=== PATIENT | male | born 1935 | race Caucasian/White ===

== ENCOUNTER 2018-02-25 06:32 | Day surgery (SDC) | payer MEDICARE, BC ==
[2018-02-25] MEDS ORDERED: Lactated Ringers 1,000 ML IV SCH (07:00)
[2018-02-25] MEDS ORDERED: Propofol 200 MG/20 ML SDV ONE (07:42)
[2018-02-25] MEDS ORDERED: fentaNYL 100 MCG/2 ML SDV ONE (07:42)
--- NOTE | 2018-02-25 14:42 | OR ---
PREOPERATIVE DIAGNOSIS: Positive FIT test. POSTOPERATIVE DIAGNOSIS: Normal colonoscopic exam. PROCEDURE PROPOSED: Total flexible colonoscopy. PROCEDURE DONE: Total flexible colonoscopy. INDICATION: This is an 82-year-old gentleman who has never had a full colonoscopy, who was found on recent annual physical to have guaiac-positive stool and was referred for colonoscopy. TECHNIQUE: The patient brought to the endoscopy suite, placed in left lateral decubitus position. 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 The flexible video colonoscope was then passed transanally and under visualization advanced to the cecum. Examination revealed normal ascending, transverse, descending, sigmoid, and rectal colon. There were no evidence of any polyps, colitis, diverticulosis, or any other abnormalities. He was noted to have possibly some mild friability in the anal area, which possibly made his test positive. There were certainly nothing of concern in his colon and he tolerated the procedure well as the scope was then withdrawn. IMPRESSION: Essentially normal colonoscopic exam. PLAN: The patient is reassured. I felt at his age does not need any future colonoscopies. SCM: 02/25/2018 08:05:35 MODL: 02/25/2018 12:08:27 /[id number]
== END 2018-02-25 09:47 | disposition home or self-care (01) ==
LOC: VM.SDS 06:32
PROVIDERS: ATTEND Surgery
DX: R19.5 Other fecal abnormalities (principal); I10 Essential (primary) hypertension; J30.9 Allergic rhinitis, unspecified; Z79.899 Other long term (current) drug therapy; Z88.0 Allergy status to penicillin; Z88.2 Allergy status to sulfonamides; Z90.49 Acquired absence of other specified parts of digestive tract; Z90.89 Acquired absence of other organs; Z98.890 Other specified postprocedural states
CPT/HCPCS: 00811; J2704; J3010; J7120

== ENCOUNTER 2018-03-27 17:34 | Inpatient (IN) | payer MEDICARE, BC ==
[2018-03-27 18:39] LABS: CHLORIDE,CL 102 mmol/L (98-107); SODIUM,NA 138 mmol/L (136-145)
[2018-03-27] MEDS ORDERED: Sodium Chloride 0.9% 500 ML IV ONE (19:14)
[2018-03-27] MEDS ORDERED: oxyCODONE 5 MG Tab PO ONE (20:24)
[2018-03-27] MEDS ORDERED: Albuterol/Ipratropium 3.0-0.5 MG/3 ML Neb Soln NEB ONE (20:25)
[2018-03-27] MEDS ORDERED: Sodium Chloride 0.9% 1,000 ML IV ONE (21:42)
[2018-03-27] MEDS: methylPREDNISolone Sodium Succinate 125 MG/2 ML SDV IV SCH (21:59)
[2018-03-27] MEDS: cefTRIAXone 2 GM Vial IVPUSH SCH (22:00)
[2018-03-27] MEDS: Albuterol 0.083% 2.5 MG/3 ML Neb Soln NEB PRN (22:03)
[2018-03-28] MEDS: oxyCODONE 5 MG Tab PO SCH ×2 (01:23→04:50)
[2018-03-28] MEDS: Albuterol 0.083% 2.5 MG/3 ML Neb Soln NEB PRN (03:10)
[2018-03-28] MEDS: methylPREDNISolone Sodium Succinate 125 MG/2 ML SDV IV SCH ×2 (04:51→15:20)
[2018-03-28] MEDS: Sodium Chloride 0.9% 10 ML Syringe FLUSH PRN ×2 (04:51→15:34)
[2018-03-28] MEDS ORDERED: oxyCODONE 5 MG Tab PO PRN (06:30)
[2018-03-28] MEDS: Gabapentin 300 MG Cap PO SCH (08:15)
[2018-03-28] MEDS: Multivitamins with Iron/Calcium/Folic Acid/Minerals Tab PO SCH (08:16)
[2018-03-28] MEDS: Calcium Carbonate/Vitamin D3 1250 MG-200 Unit Tab PO SCH (08:16)
[2018-03-28] MEDS: Aspirin 81 MG Tab.Chew PO SCH (08:17)
[2018-03-28] MEDS: Lisinopril 20 MG Tab PO SCH (08:17)
[2018-03-28] MEDS: Cyanocobalamin (Vitamin B12) 1,000 MCG Tab PO SCH (08:17)
[2018-03-28] MEDS: cefTRIAXone 2 GM Vial IVPUSH SCH (08:23)
[2018-03-28] MEDS: Gabapentin 400 MG Cap PO SCH ×2 (12:08→20:15)
--- NOTE | 2018-03-28 14:15 | PCM.HP ---
H&P History of Present Illness - General Date of Service: 03/28/18 Admit Problem/Dx: Admission Diagnosis/Problem Admission Diagnosis/Problem Weakness - History of Present Illness Initial Comments - Free Text/Narative: Chief complaint: Confusion and fever History present illness: Three days ago patient underwent total hip revision without complication. Two days ago he went home as he was doing pretty well. Yesterday he began seeming more confused and agitated. Was having a harder time getting around did not have any focal symptoms. They measured a temperature 102. Maybe slight cough no dysuria no diarrhea no vomiting no abdominal pain no chest pain. 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 They did a workup for any sources of postop infection his UA was normal chest x-ray was normal and CT had this morning was normal. His white count was just a touch elevated. They started him on empiric steroid plus Rocephin for possible bronchitis with some wheezing versus rule out PNA. He has improved overnight. His thinking seems back to normal he still can't remember much of all from yesterday. Chest x-rays again normal. White count is come down some. He remains afebrile. Past medical history: Multiple hip surgeries including for arthroplasties to the right side. Recent normal cultures from this last surgery. Hypertension. Foot drop. Nephritis. Medications: Aspirin, Senokot, oxycodone when necessary, lisinopril, pravastatin , gabapentin, calcium with vitamin D, B-12, multivitamin. Allergies: Penicillin, sulfa, question Zosyn. Social history: lives with , nonsmoker. Family history: Noncontributory. Review of systems: Negative. Denies any complaints currently. No speech difficulty no facial droop no headache no neck pain no chest pain no abdominal pain no vomiting no diarrhea and no dysuria no cough denies any pain in his recent hip. Physical exam oxygen saturations 93% room air temperature 36.8 Celsius pulse 72 blood pressure 120/60. Alert oriented male sitting on edge of bed pleasant cooperative smiling, head is atraumatic. Pupils equal round reactive, cranial nerves intact. Neck supple full range of motion. Heart and lungs clear to auscultation. Abdomen soft nontender. Normal postoperative range of motion right hip. He has a clean dry lateral surgical wound. No calf pain or swelling. Assessment and plan: #1. Confusion, resolved. Would seem most consistent with a delirium from commendation of recent surgery and hospitalization, recent pain medicine use, recent fever. #2. Fever, resolved, white count trending down. Afebrile close to 24 hours currently. Continue Rocephin for now. We can DC his steroid. Would suspect usual nonspecific postoperative fever with no focal signs of infection seen. #3. I recommend Lovenox DVT prophylaxis while in the hospital. #4. Has mild TRINI, continue gentle rehydration. #5. Slight ambulate issues after recent RUIZ. This is his fourth revision. He is 82 years old. He was sent home after one night in the hospital. Family does have some concerns about his ability to return home and be able to do ADLs. We'll have PT consult today and see whether not he needs swing bed for some additional rehab. - Related Data Allergies/Adverse Reactions: Allergies Allergy/AdvReac Type Severity Reaction Status Date / Time Penicillins Allergy Hives Verified 02/25/18 06:46 Sulfa (Sulfonamide Allergy Hives Verified 02/25/18 06:46 Antibiotics) Home Medications: Home Meds Cyanocobalamin (Vitamin B-12) [Vitamin B-12] 1,000 mcg PO DAILY 05/06/14 [ History] Gabapentin [Neurontin] 600 mg PO TID 05/06/14 [History] Lisinopril [Zestril] 20 mg PO DAILY 05/06/14 [History] Multivitamin [Multi Vitamin Daily] 1 each PO DAILY 05/06/14 [History] Pravastatin [Pravachol] 80 mg PO BEDTIME 05/06/14 [History] Calcium Carbonate/Vitamin D3 [Oyster Shell+D 250 mg Tablet] 1 tab PO DAILY 02/25 [History] traMADol [Ultram] 50 mg PO QID PRN 02/25/18 [History] Aspirin 81 mg PO DAILY 03/27/18 [History] Docusate Sodium/Sennosides [Senokot-S] 2 each PO BID 03/27/18 [History] oxyCODONE 5 mg PO Q4H 03/27/18 [History] Past Medical History HEENT History: Reports: Cataract, Other (See Below) Other HEENT History: tonsillectomy Cardiovascular History: Reports: High Cholesterol, Hypertension Respiratory History: Reports: Other (See Below) Other Respiratory History: pneumonia Gastrointestinal History: Reports: None Genitourinary History: Reports: None Musculoskeletal History: Reports: Osteoarthritis, Other (See Below) Other Musculoskeletal History: Bilateral bunion. hammer toe. 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 Right foot drop. Ingrown left big toenail. left foot ulcer. Bicep tendon repair Other Neuro History: Postherpetic neuralgia Psychiatric History: Reports: None Endocrine/Metabolic History: Reports: None Hematologic History: Reports: None Immunologic History: Reports: None Oncologic (Cancer) History: Reports: None Dermatologic History: Reports: None - Past Surgical History Head Surgeries/Procedures: Reports: None HEENT Surgical History: Reports: Cataract Surgery, Tonsillectomy Cardiovascular Surgical History: Reports: None GI Surgical History: Reports: Cholecystectomy Endocrine Surgical History: Reports: None Musculoskeletal Surgical History: Reports: Hip Replacement Social & Family History - Family History Family Medical History: Unobtainable - Tobacco Use Smoking Status *Q: Never Smoker Second Hand Smoke Exposure: No - Caffeine Use Caffeine Use: Reports: None - Recreational Drug Use Recreational Drug Use: No H&P Review of Systems - Review of Systems: Review Of Systems: See Below Exam - Exam Exam: See Below - Vital Signs Vital Signs: Last Vital Signs Temp 36.8 C 03/28/18 06:00 Pulse 75 03/28/18 06:00 Resp 20 03/28/18 06:00 BP 128/64 03/28/18 08:17 Pulse Ox 93 L 03/28/18 06:00 Weight: 111.584 kg - Patient Data Lab Results Last 24 hrs: Laboratory Results - last 24 hr 03/27/18 03/27/18 03/27/18 Range/Units 18:05 18:05 18:05 WBC 10.4 H (4.0-10.0) x10^3/uL RBC 4.05 L (4.5-6.0) x10^6/uL Hgb 12.6 L (14.0-18.0) g/dL Hct 38.1 L (40.0-52.0) % MCV 94.1 H (78.0-93.0) fL MCH 31.1 (26.0-32.0) pg MCHC 33.1 (32.0-36.0) g/dL RDW Coeff of [place] 13.8 (10.0-15.0) % Plt Count 136 (130-400) x10^3/uL Neut % (Auto) 56.9 (50.0-80.0) % Lymph % (Auto) 28.1 (25.0-50.0) % [place] % (Auto) 14.7 H (2.0-11.0) % Eos % (Auto) 0.2 (0.0-4.0) % Baso % (Auto) 0.1 L (0.2-1.2) % PT 10.4 (9.6-11.4) SEC INR 1.0 L (2.0-3.5) Sodium 138 (136-145) mmol/L Potassium 4.0 (3.5-5.1) mmol/L Chloride 102 (98-107) mmol/L Carbon Dioxide 24 (21-32) mmol/L Anion Gap 16.0 (10-20) mmol/L BUN 18 (7-18) mg/dL Creatinine 1.5 H (0.70-1.30) mg/dL Est Cr Clr Drug Dosing TNP Estimated GFR (MDRD) 45 Glucose 115 H (74-106) mg/dL Lactic Acid (0.4-2.0) mmol/L Calcium 8.5 (8.5-10.1) mg/dL Corrected Calcium 9.14 (8.5-10.1) mg/dL Magnesium 1.7 L (1.8-2.4) mg/dL Total Bilirubin 0.9 (0.2-1.0) mg/dL AST 47 H (15-37) U/L ALT 29 (16-63) U/L Alkaline Phosphatase 78 (46-116) U/L Troponin I < 0.017 (<=0.056) ng/mL C-Reactive Protein 16.0 H (<=0.9) mg/dL NT-Pro-B Natriuret Pep 232 (<=450) pg/mL Total Protein 6.2 L (6.4-8.2) g/dL Albumin 3.2 L (3.4-5.0) g/dL Globulin 3.0 Albumin/Globulin Ratio 1.07 Urine Color (YELLOW) Urine Appearance (CLEAR) Urine pH (5.0-8.0) Ur Specific [place] Urine Protein (NEGATIVE) mg/dL Urine Glucose (UA) (NEGATIVE) mg/dL Urine Ketones (NEGATIVE) mg/dL Urine Occult Blood (NEGATIVE) Urine Nitrite (NEGATIVE) Urine Bilirubin (NEGATIVE) Urine Urobilinogen (0.2) EU/dL Ur Leukocyte Esterase (NEGATIVE) Urine RBC (NOT SEEN) /HPF Urine WBC (NOT SEEN) /HPF Ur Transition Epith Cell (NEGATIVE) /HPF Amorphous Sediment Urine Bacteria (NEGATIVE) /HPF Urine Mucus (NEGATIVE) /LPF 03/27/18 03/27/18 03/28/18 Range/Units 18:05 20:25 08:35 WBC 8.6 (4.0-10.0) x10^3/uL RBC 4.22 L (4.5-6.0) x10^6/uL Hgb 13.2 L (14.0-18.0) g/dL Hct 39.6 L (40.0-52.0) % MCV 93.8 H (78.0-93.0) fL MCH 31.3 (26.0-32.0) pg MCHC 33.3 (32.0-36.0) g/dL RDW Coeff of [place] 13.6 (10.0-15.0) % Plt Count 137 (130-400) x10^3/uL Neut % (Auto) 83.1 H (50.0-80.0) % Lymph % (Auto) 13.5 L (25.0-50.0) % [place] % (Auto) 3.2 (2.0-11.0) % Eos % (Auto) 0.0 (0.0-4.0) % Baso % (Auto) 0.2 (0.2-1.2) % PT (9.6-11.4) SEC INR (2.0-3.5) Sodium (136-145) mmol/L Potassium (3.5-5.1) mmol/L Chloride (98-107) mmol/L Carbon Dioxide (21-32) mmol/L Anion Gap (10-20) mmol/L BUN (7-18) mg/dL Creatinine (0.70-1.30) mg/dL Est Cr Clr Drug Dosing Estimated GFR (MDRD) Glucose (74-106) mg/dL Lactic Acid 1.2 (0.4-2.0) mmol/L Calcium (8.5-10.1) mg/dL Corrected Calcium (8.5-10.1) mg/dL Magnesium (1.8-2.4) mg/dL Total Bilirubin (0.2-1.0) mg/dL AST (15-37) U/L ALT (16-63) U/L Alkaline Phosphatase (46-116) U/L Troponin I (<=0.056) ng/mL C-Reactive Protein (<=0.9) mg/dL NT-Pro-B Natriuret Pep (<=450) pg/mL Total Protein (6.4-8.2) g/dL Albumin (3.4-5.0) g/dL Globulin Albumin/Globulin Ratio Urine Color Dark yellow H (YELLOW) Urine Appearance Slightly cloudy H (CLEAR) Urine pH 5.0 (5.0-8.0) Ur Specific [place] 1.010 Urine Protein Negative (NEGATIVE) mg/dL Urine Glucose (UA) Negative (NEGATIVE) mg/dL Urine Ketones Negative (NEGATIVE) mg/dL Urine Occult Blood Negative (NEGATIVE) Urine Nitrite Negative (NEGATIVE) Urine Bilirubin Negative (NEGATIVE) Urine Urobilinogen 0.2 (0.2) EU/dL Ur Leukocyte Esterase Negative (NEGATIVE) Urine RBC 0-5 (NOT SEEN) /HPF Urine WBC 0-5 (NOT SEEN) /HPF Ur Transition Epith Cell Rare H (NEGATIVE) /HPF Amorphous Sediment Few Urine Bacteria Few H (NEGATIVE) /HPF Urine Mucus Few H (NEGATIVE) /LPF 03/28/18 Range/Units 08:35 WBC (4.0-10.0) x10^3/uL RBC (4.5-6.0) x10^6/uL Hgb (14.0-18.0) g/dL Hct (40.0-52.0) % MCV (78.0-93.0) fL MCH (26.0-32.0) pg MCHC (32.0-36.0) g/dL RDW Coeff of [place] (10.0-15.0) % Plt Count (130-400) x10^3/uL Neut % (Auto) (50.0-80.0) % Lymph % (Auto) (25.0-50.0) % [place] % (Auto) (2.0-11.0) % Eos % (Auto) (0.0-4.0) % Baso % (Auto) (0.2-1.2) % PT (9.6-11.4) SEC INR (2.0-3.5) Sodium 141 (136-145) mmol/L Potassium 4.6 (3.5-5.1) mmol/L Chloride 105 (98-107) mmol/L Carbon Dioxide 24 (21-32) mmol/L Anion Gap 16.6 (10-20) mmol/L BUN 18 (7-18) mg/dL Creatinine 1.5 H (0.70-1.30) mg/dL Est Cr Clr Drug Dosing 41.14 Estimated GFR (MDRD) 45 Glucose 243 H (74-106) mg/dL Lactic Acid (0.4-2.0) mmol/L Calcium 8.7 (8.5-10.1) mg/dL Corrected Calcium (8.5-10.1) mg/dL Magnesium (1.8-2.4) mg/dL Total Bilirubin (0.2-1.0) mg/dL AST (15-37) U/L ALT (16-63) U/L Alkaline Phosphatase (46-116) U/L Troponin I (<=0.056) ng/mL C-Reactive Protein 16.6 H (<=0.9) mg/dL NT-Pro-B Natriuret Pep (<=450) pg/mL Total Protein (6.4-8.2) g/dL Albumin (3.4-5.0) g/dL Globulin Albumin/Globulin Ratio Urine Color (YELLOW) Urine Appearance (CLEAR) Urine pH (5.0-8.0) Ur Specific [place] Urine Protein (NEGATIVE) mg/dL Urine Glucose (UA) (NEGATIVE) mg/dL Urine Ketones (NEGATIVE) mg/dL Urine Occult Blood (NEGATIVE) Urine Nitrite (NEGATIVE) Urine Bilirubin (NEGATIVE) Urine Urobilinogen (0.2) EU/dL Ur Leukocyte Esterase (NEGATIVE) Urine RBC (NOT SEEN) /HPF Urine WBC (NOT SEEN) /HPF Ur Transition Epith Cell (NEGATIVE) /HPF Amorphous Sediment Urine Bacteria (NEGATIVE) /HPF Urine Mucus (NEGATIVE) /LPF Result Diagrams: 03/28/18 08:35 03/28/18 08:35 [place] Results Last 24 hrs: Microbiology 03/27/18 20:45 Influenza Type A Antigen Screen - Final Nasal, Unspecified NEGATIVE INFLUENZA A VIRUS AG Influenza Type B Antigen Screen - Final NEGATIVE INFLUENZA B VIRUS AG Problem List Initiated/Reviewed/Updated: Yes Orders Last 24hrs: Active Orders 24 hr Category Date Time Status Patient Status [ADT] Routine ADT 03/27/18 21:45 Active Cardiac Monitoring [RC] 06,10,14,18,22,02 Care 03/27/18 22:37 Active EKG Documentation Completion [RC] STAT Care 03/27/18 17:41 Active Intake and Output [RC] ,18 Care 03/27/18 22:37 Active Oxygen Therapy [RC] PRN Care 03/27/18 22:37 Active RT Aerosol Therapy [RC] .PRN Care 03/27/18 20:25 Active Up With Assistance [RC] ASDIRECTED Care 03/27/18 22:36 Active VTE/DVT Education [RC] PER UNIT ROUTINE Care 03/27/18 22:37 Active Vital Signs [RC] Q4H Care 03/27/18 22:36 Active PT Evaluation and Treatment [CONS] Routine Cons 03/28/18 11:30 Active Regular Diet [DIET] Diet 03/28/18 Breakfast Active Chest 1V Frontal [CR] AM Exams 03/28/18 05:11 Taken Chest 1V Frontal [CR] Stat Exams 03/27/18 17:44 Taken Head wo Cont [CT] Routine Exams 03/28/18 08:09 Taken Albuterol [Proventil Neb Soln] Med 03/27/18 21:44 Active 2.5 mg NEB Q4HRRT PRN Aspirin Med 03/28/18 08:00 Active 81 mg PO DAILY Calcium Carbonate/Vitamin D3 [Calcium Carbonate/Vitamin Med 03/28/18 08:00 Active D 1250 MG-200 Unit] 1 tab PO DAILY Cyanocobalamin (Vitamin B12) [Vitamin B12] Med 03/28/18 08:00 Active 1,000 mcg PO DAILY Docusate Sodium/Sennosides [Senna Plus] Med 03/28/18 08:00 Active 2 tab PO BID Gabapentin [Neurontin] Med 03/28/18 12:00 Active 1,200 mg PO BID@1200,2000 Gabapentin [Neurontin] Med 03/28/18 08:00 Active 600 mg PO DAILY Lisinopril [Prinivil] Med 03/28/18 08:00 Active 20 mg PO DAILY Multivitamins w-Iron/Ca/FA/Min [Thera M Plus] Med 03/28/18 08:00 Active 1 tab PO DAILY Simvastatin [Zocor] Med 03/28/18 20:00 Active 40 mg PO BEDTIME Sodium Chloride 0.9% [Saline Flush] Med 03/27/18 17:41 Active 10 ml FLUSH ASDIRECTED PRN cefTRIAXone [Rocephin] Med 03/27/18 21:45 Active 2 gm IVPUSH DAILY methylPREDNISolone Sod Succ [Solu-MEDROL] Med 03/27/18 21:45 Active 125 mg IV Q8H oxyCODONE Med 03/28/18 06:30 Active 5 mg PO Q4H PRN Peripheral IV Insertion Adult [OM.PC] Routine Oth 03/27/18 17:42 Ordered Medication Orders Albuterol (Proventil Neb Soln) 2.5 mg NEB Q4HRRT PRN PRN Reason: Dyspnea Last Admin: 03/28/18 03:10 Dose: 2.5 mg Admin: 03/27/18 22:03 Dose: 2.5 mg Aspirin (Aspirin) 81 mg PO DAILY [facility] Last Admin: 03/28/18 08:17 Dose: 81 mg Calcium Carbonate (Calcium Carbonate/Vitamin D 1250 Mg-200 Unit) 1 tab PO DAILY [facility] Last Admin: 03/28/18 08:16 Dose: 1 tab Ceftriaxone Sodium (Rocephin) 2 gm IVPUSH DAILY [facility] Last Admin: 03/28/18 08:23 Dose: 2 gm Admin: 03/27/18 22:00 Dose: 2 gm Cyanocobalamin (Vitamin B12) 1,000 mcg PO DAILY [facility] Last Admin: 03/28/18 08:17 Dose: 1,000 mcg Gabapentin (Neurontin) 600 mg PO DAILY [facility] Last Admin: 03/28/18 08:15 Dose: 600 mg Gabapentin (Neurontin) 1,200 mg PO BID@1200,2000 [facility] Last Admin: 03/28/18 12:08 Dose: 1,200 mg Lisinopril (Prinivil) 20 mg PO DAILY [facility] Last Admin: 03/28/18 08:17 Dose: 20 mg Methylprednisolone Sodium Succinate (Solu-Medrol) 125 mg IV Q8H [facility] Last Admin: 03/28/18 04:51 Dose: 125 mg Admin: 03/27/18 21:59 Dose: 125 mg Multivitamins/Minerals (Thera M Plus) 1 tab PO DAILY [facility] Last Admin: 03/28/18 08:16 Dose: 1 tab Oxycodone HCl (Oxycodone) 5 mg PO Q4H PRN PRN Reason: Pain Senna/Docusate Sodium (Senna Plus) 2 tab PO BID [facility] Last Admin: 03/28/18 08:17 Dose: 2 tab Simvastatin (Zocor) 40 mg PO BEDTIME [facility] Sodium Chloride (Saline Flush) 10 ml FLUSH ASDIRECTED PRN PRN Reason: Keep Vein Open Last Admin: 03/28/18 04:51 Dose: 10 ml
[2018-03-28] MEDS ORDERED: Enoxaparin 40 MG/0.4 ML Syringe SUBCUT SCH (14:30)
[2018-03-28] MEDS: NS + KCl 20mEq/L 1,000 ML IV SCH (15:26)
[2018-03-28] MEDS ORDERED: Simvastatin 40 MG Tab PO SCH (20:00)
[2018-03-29] MEDS: NS + KCl 20mEq/L 1,000 ML IV SCH (00:29)
[2018-03-29] MEDS ORDERED: cefTRIAXone 1 GM Vial IV SCH (08:00)
[2018-03-29] MEDS: Aspirin 81 MG Tab.Chew PO SCH (08:48)
[2018-03-29] MEDS: Multivitamins with Iron/Calcium/Folic Acid/Minerals Tab PO SCH (08:48)
[2018-03-29] MEDS: Lisinopril 20 MG Tab PO SCH (08:48)
[2018-03-29] MEDS: Cyanocobalamin (Vitamin B12) 1,000 MCG Tab PO SCH (08:48)
[2018-03-29] MEDS: Calcium Carbonate/Vitamin D3 1250 MG-200 Unit Tab PO SCH (08:48)
[2018-03-29] MEDS: Gabapentin 300 MG Cap PO SCH (08:49)
--- NOTE | 2018-03-29 10:47 | PCM.DCSUM1 ---
Discharge Summary - Hospital Course Free Text/Narrative:: Patient was admitted two days ago for some delirium symptoms status post recent hip arthroplasty revision four days ago. He apparently had a fever prior but remained afebrile during his stay. Chest x-ray blood culture urinalysis all normal. CT head normal. No focal complaints. His wound site looks clean. He ambulated normally w PT, is given him clearance to return home without need for swing bed stay. Mental status is back at baseline. He states he had some delirium issues in the past after procedure as well. See His primary next week for recheck and then follow-up with Ortho as planned. Can return sooner if fever or confusion back. - Discharge Data Discharge Date: 03/29/18 Discharge Disposition: Home, Self-Care 01 Condition: Good - Patient Summary/Data Consults: Consultations 03/28/18 11:30 PT Evaluation and Treatment [CONS] Routine - Discharge Plan Home Medications: Home Meds Cyanocobalamin (Vitamin B-12) [Vitamin B-12] 1,000 mcg PO DAILY 05/06/14 [ History] Gabapentin [Neurontin] 600 mg PO TID 05/06/14 [History] Lisinopril [Zestril] 20 mg PO DAILY 05/06/14 [History] Multivitamin [Multi-Vitamin Daily] 1 each PO DAILY 05/06/14 [History] Pravastatin [Pravachol] 80 mg PO BEDTIME 05/06/14 [History] Calcium Carbonate/Vitamin D3 [Oyster Shell+D 250 mg Tablet] 1 tab PO DAILY 02/25 [History] traMADol [Ultram] 50 mg PO QID PRN 02/25/18 [History] Aspirin 81 mg PO DAILY 03/27/18 [History] Docusate Sodium/Sennosides [Senokot-S] 2 each PO BID 03/27/18 [History] Forms: ED Department Discharge Referrals: Ludin Wang MD [Primary Care Provider] - 04/08/18 10:20 am (You have a follow up appt. with Dr. Wang on April 08, 2018 at 10:20) - Discharge Summary/Plan Comment DC Time >30 min.: No - Patient Data Vitals - Most Recent: Last Vital Signs Temp 36.6 C 03/29/18 05:58 Pulse 67 03/29/18 05:58 Resp 20 03/29/18 05:58 BP 124/64 03/29/18 05:58 Pulse Ox 94 L 03/29/18 05:58 Weight - Most Recent: 111.584 kg I&O - Last 24 hours: Intake & Output 03/28/18 03/29/18 03/29/18 22:59 06:59 14:59 Intake Total 1740 240 Output Total 700 1400 Balance -700 340 240 Lab Results - Last 24 hrs: Laboratory Results - last 24 hr 03/29/18 03/29/18 Range/Units 06:30 06:30 WBC 13.9 H (4.0-10.0) x10^3/uL RBC 3.84 L (4.5-6.0) x10^6/uL Hgb 12.0 L (14.0-18.0) g/dL Hct 36.2 L (40.0-52.0) % MCV 94.3 H (78.0-93.0) fL MCH 31.3 (26.0-32.0) pg MCHC 33.1 (32.0-36.0) g/dL RDW Coeff of [place] 13.5 (10.0-15.0) % Plt Count 178 (130-400) x10^3/uL Neut % (Auto) 77.3 (50.0-80.0) % Lymph % (Auto) 14.8 L (25.0-50.0) % [place] % (Auto) 7.8 (2.0-11.0) % Eos % (Auto) 0.0 (0.0-4.0) % Baso % (Auto) 0.1 L (0.2-1.2) % Sodium 144 (136-145) mmol/L Potassium 4.4 (3.5-5.1) mmol/L Chloride 109 H (98-107) mmol/L Carbon Dioxide 25 (21-32) mmol/L Anion Gap 14.4 (10-20) mmol/L BUN 24 H (7-18) mg/dL Creatinine 1.3 (0.70-1.30) mg/dL Est Cr Clr Drug Dosing 47.46 mL/min Estimated GFR (MDRD) 53 Glucose 118 H (74-106) mg/dL Calcium 8.6 (8.5-10.1) mg/dL Med Orders - Current: Current Medications Discontinued Medications Albuterol (Proventil Neb Soln) 2.5 mg NEB Q4HRRT PRN PRN Reason: Dyspnea Last Admin: 03/28/18 03:10 Dose: 2.5 mg Albuterol/Ipratropium (Duoneb 3.0-0.5 Mg/3 Ml) 3 ml NEB ONETIME ONE Stop: 03/27/18 20:26 Last Admin: 03/27/18 20:53 Dose: 3 ml Aspirin (Aspirin) 81 mg PO DAILY [facility] Last Admin: 03/29/18 08:48 Dose: 81 mg Calcium Carbonate (Calcium Carbonate/Vitamin D 1250 Mg-200 Unit) 1 tab PO DAILY [facility] Last Admin: 03/29/18 08:48 Dose: 1 tab Ceftriaxone Sodium (Rocephin) 2 gm IVPUSH DAILY [facility] Last Admin: 03/28/18 08:23 Dose: 2 gm Ceftriaxone Sodium (Rocephin) 1 gm IV DAILY [facility] Last Admin: 03/29/18 08:48 Dose: Not Given Cyanocobalamin (Vitamin B12) 1,000 mcg PO DAILY [facility] Last Admin: 03/29/18 08:48 Dose: 1,000 mcg Enoxaparin Sodium (Lovenox) 40 mg SUBCUT Q24H [facility] Last Admin: 03/28/18 15:17 Dose: 40 mg Gabapentin (Neurontin) 600 mg PO DAILY [facility] Last Admin: 03/29/18 08:49 Dose: 600 mg Gabapentin (Neurontin) 1,200 mg PO BID@1200,2000 [facility] Last Admin: 03/28/18 20:15 Dose: 1,200 mg Sodium Chloride (Normal Saline) 500 mls @ 500 mls/hr IV ONETIME ONE Stop: 03/27/18 20:13 Last Admin: 03/27/18 19:22 Dose: 500 mls/hr Sodium Chloride (Normal Saline) 1,000 mls @ 125 mls/hr IV .BOLUS ONE Stop: 03/28/18 05:41 Last Admin: 03/27/18 21:58 Dose: 125 mls/hr Potassium Chloride/Sodium Chloride (Normal Saline With 20 Meq Kcl) 1,000 mls @ 125 mls/hr IV ASDIRECTED [facility] Last Admin: 03/29/18 00:29 Dose: 125 mls/hr Lisinopril (Prinivil) 20 mg PO DAILY [facility] Last Admin: 03/29/18 08:48 Dose: 20 mg Methylprednisolone Sodium Succinate (Solu-Medrol) 125 mg IV Q8H [facility] Last Admin: 03/28/18 15:20 Dose: Not Given Multivitamins/Minerals (Thera M Plus) 1 tab PO DAILY [facility] Last Admin: 03/29/18 08:48 Dose: 1 tab Oxycodone HCl (Oxycodone) 5 mg PO ONETIME ONE Stop: 03/27/18 20:25 Last Admin: 03/27/18 20:51 Dose: 5 mg Oxycodone HCl (Oxycodone) 5 mg PO Q4H [facility] Last Admin: 03/28/18 04:50 Dose: Not Given Oxycodone HCl (Oxycodone) 5 mg PO Q4H PRN PRN Reason: Pain Last Admin: 03/29/18 00:35 Dose: 5 mg Senna/Docusate Sodium (Senna Plus) 2 tab PO BID [facility] Last Admin: 03/29/18 08:49 Dose: 1 tab Simvastatin (Zocor) 40 mg PO BEDTIME [facility] Last Admin: 03/28/18 20:15 Dose: 40 mg Sodium Chloride (Saline Flush) 10 ml FLUSH ASDIRECTED PRN PRN Reason: Keep Vein Open Last Admin: 03/28/18 15:34 Dose: 10 ml
--- NOTE | 2018-04-01 07:51 | EDM.PDOC ---
ED HPI GENERAL MEDICAL PROBLEM - General Chief Complaint: Fever Time Seen by Provider: 03/27/18 17:34 Source of Information: Reports: Patient History Limitations: Reports: No Limitations - History of Present Illness INITIAL COMMENTS - FREE TEXT/NARRATIVE: Pt. presents to ER with complaints of confusion and weakness for the past several days. Pt. underwent hip replacement approx. 4 days prior to coming to ER. The incision was intact with no drainage. Pt. is having issues with standing and amblating. He is not experiencing any chest pain or shortness of breath. No nausea/vomiting/diarrhea. He has basically been symptomatic since 1 day post op, and was somewhat confused prior to discharge. Location: Reports: Generalized - Related Data Allergies Allergy/AdvReac Type Severity Reaction Status Date / Time Penicillins Allergy Hives Verified 02/25/18 06:46 Sulfa (Sulfonamide Allergy Hives Verified 02/25/18 06:46 Antibiotics) Home Meds: Home Meds Cyanocobalamin (Vitamin B-12) [Vitamin B-12] 1,000 mcg PO DAILY 05/06/14 [ History] Gabapentin [Neurontin] 600 mg PO TID 05/06/14 [History] Lisinopril [Zestril] 20 mg PO DAILY 05/06/14 [History] Multivitamin [Multi-Vitamin Daily] 1 each PO DAILY 05/06/14 [History] Pravastatin [Pravachol] 80 mg PO BEDTIME 05/06/14 [History] Calcium Carbonate/Vitamin D3 [[place]yster [place]+D 250 mg Tablet] 1 tab PO DAILY 02/25 [History] traMADol [Ultram] 50 mg PO QID PRN 02/25/18 [History] Aspirin 81 mg PO DAILY 03/27/18 [History] Docusate Sodium/Sennosides [Senokot-S] 2 each PO BID 03/27/18 [History] Past Medical History HEENT History: Reports: Cataract, Other (See Below) Other HEENT History: tonsillectomy Cardiovascular History: Reports: High Cholesterol, Hypertension Respiratory History: Reports: Other (See Below) Other Respiratory History: pneumonia Gastrointestinal History: Reports: None Genitourinary History: Reports: None Musculoskeletal History: Reports: Osteoarthritis, Other (See Below) Other Musculoskeletal History: Bilateral bunion. hammer toe. 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 Right foot drop. Ingrown left big toenail. left foot ulcer. Bicep tendon repair Other Neuro History: Postherpetic neuralgia Psychiatric History: Reports: None Endocrine/Metabolic History: Reports: None Hematologic History: Reports: None Immunologic History: Reports: None Oncologic (Cancer) History: Reports: None Dermatologic History: Reports: None - Past Surgical History Head Surgeries/Procedures: Reports: None HEENT Surgical History: Reports: Cataract Surgery, Tonsillectomy Cardiovascular Surgical History: Reports: None GI Surgical History: Reports: Cholecystectomy Endocrine Surgical History: Reports: None Musculoskeletal Surgical History: Reports: Hip Replacement Social & Family History - Family History Family Medical History: Unobtainable - Tobacco Use Smoking Status *Q: Never Smoker Second Hand Smoke Exposure: No - Caffeine Use Caffeine Use: Reports: None - Recreational Drug Use Recreational Drug Use: No ED ROS GENERAL - Review of Systems Review Of Systems: ROS reveals no pertinent complaints other than HPI. ED EXAM, GENERAL - Physical Exam Exam: See Below General Appearance: Other (confused ) Eye Exam: Bilateral Eye: EOMI, Normal Fundi, Normal Inspection, PERRL Ears: Normal External Exam, Normal Canal, Hearing Grossly Normal, Normal TMs Ear Exam: Bilateral Ear: Auricle Normal, Canal Normal, TM normal Nose: Normal Inspection, Normal Mucosa, No Blood Throat/Mouth: Normal Inspection, Normal Lips, Normal Teeth, Normal Gums, Normal Oropharynx, Normal Voice, No Airway Compromise Head: Atraumatic, Normocephalic Neck: Normal Inspection, Supple, Non-Tender, Full Range of Motion Respiratory/Chest: No Respiratory Distress, Lungs Clear, Normal Breath Sounds, No Accessory Muscle Use, Chest Non-Tender Cardiovascular: Normal Peripheral Pulses, Regular Rate, Rhythm, No Edema, No Gallop, No JVD, No Murmur, No Rub GI/Abdominal: Normal Bowel Sounds, Soft, Non-Tender, No Organomegaly, No Distention, No Abnormal Bruit, No Mass Back Exam: Normal Inspection, Full Range of Motion, NT Extremities: Normal Inspection, Normal Range of Motion, Non-Tender, Normal Capillary Refill, No Pedal Edema Neurological: Alert, Oriented, CN II-XII Intact, Normal Cognition, Normal Gait, Normal Reflexes, No Motor/Sensory Deficits Psychiatric: Normal Affect, Normal Mood Skin Exam: Warm, Dry, Intact, Normal Color, No Rash Course - Vital Signs Last Recorded V/S: Last Vital Signs Temp 36.6 C 03/29/18 05:58 Pulse 67 03/29/18 05:58 Resp 20 03/29/18 05:58 BP 124/64 03/29/18 05:58 Pulse Ox 94 L 03/29/18 05:58 - Orders/Labs/Meds Labs: Laboratory Tests 03/27/18 03/27/18 03/27/18 Range/Units 18:05 18:05 18:05 WBC 10.4 H (4.0-10.0) x10^3/uL RBC 4.05 L (4.5-6.0) x10^6/uL Hgb 12.6 L (14.0-18.0) g/dL Hct 38.1 L (40.0-52.0) % MCV 94.1 H (78.0-93.0) fL MCH 31.1 (26.0-32.0) pg MCHC 33.1 (32.0-36.0) g/dL RDW Coeff of [place] 13.8 (10.0-15.0) % Plt Count 136 (130-400) x10^3/uL Neut % (Auto) 56.9 (50.0-80.0) % Lymph % (Auto) 28.1 (25.0-50.0) % [place] % (Auto) 14.7 H (2.0-11.0) % Eos % (Auto) 0.2 (0.0-4.0) % Baso % (Auto) 0.1 L (0.2-1.2) % PT 10.4 (9.6-11.4) SEC INR 1.0 L (2.0-3.5) Sodium 138 (136-145) mmol/L Potassium 4.0 (3.5-5.1) mmol/L Chloride 102 (98-107) mmol/L Carbon Dioxide 24 (21-32) mmol/L Anion Gap 16.0 (10-20) mmol/L BUN 18 (7-18) mg/dL Creatinine 1.5 H (0.70-1.30) mg/dL Est Cr Clr Drug Dosing TNP Estimated GFR (MDRD) 45 Glucose 115 H (74-106) mg/dL Lactic Acid (0.4-2.0) mmol/L Calcium 8.5 (8.5-10.1) mg/dL Corrected Calcium 9.14 (8.5-10.1) mg/dL Magnesium 1.7 L (1.8-2.4) mg/dL Total Bilirubin 0.9 (0.2-1.0) mg/dL AST 47 H (15-37) U/L ALT 29 (16-63) U/L Alkaline Phosphatase 78 (46-116) U/L Troponin I < 0.017 (<=0.056) ng/mL C-Reactive Protein 16.0 H (<=0.9) mg/dL NT-Pro-B Natriuret Pep 232 (<=450) pg/mL Total Protein 6.2 L (6.4-8.2) g/dL Albumin 3.2 L (3.4-5.0) g/dL Globulin 3.0 Albumin/Globulin Ratio 1.07 Urine Color (YELLOW) Urine Appearance (CLEAR) Urine pH (5.0-8.0) Ur Specific [place] Urine Protein (NEGATIVE) mg/dL Urine Glucose (UA) (NEGATIVE) mg/dL Urine Ketones (NEGATIVE) mg/dL Urine Occult Blood (NEGATIVE) Urine Nitrite (NEGATIVE) Urine Bilirubin (NEGATIVE) Urine Urobilinogen (0.2) EU/dL Ur Leukocyte Esterase (NEGATIVE) Urine RBC (NOT SEEN) /HPF Urine WBC (NOT SEEN) /HPF Ur Transition Epith Cell (NEGATIVE) /HPF Amorphous Sediment Urine Bacteria (NEGATIVE) /HPF Urine Mucus (NEGATIVE) /LPF 03/27/18 03/27/18 Range/Units 18:05 20:25 WBC (4.0-10.0) x10^3/uL RBC (4.5-6.0) x10^6/uL Hgb (14.0-18.0) g/dL Hct (40.0-52.0) % MCV (78.0-93.0) fL MCH (26.0-32.0) pg MCHC (32.0-36.0) g/dL RDW Coeff of [place] (10.0-15.0) % Plt Count (130-400) x10^3/uL Neut % (Auto) (50.0-80.0) % Lymph % (Auto) (25.0-50.0) % [place] % (Auto) (2.0-11.0) % Eos % (Auto) (0.0-4.0) % Baso % (Auto) (0.2-1.2) % PT (9.6-11.4) SEC INR (2.0-3.5) Sodium (136-145) mmol/L Potassium (3.5-5.1) mmol/L Chloride (98-107) mmol/L Carbon Dioxide (21-32) mmol/L Anion Gap (10-20) mmol/L BUN (7-18) mg/dL Creatinine (0.70-1.30) mg/dL Est Cr Clr Drug Dosing Estimated GFR (MDRD) Glucose (74-106) mg/dL Lactic Acid 1.2 (0.4-2.0) mmol/L Calcium (8.5-10.1) mg/dL Corrected Calcium (8.5-10.1) mg/dL Magnesium (1.8-2.4) mg/dL Total Bilirubin (0.2-1.0) mg/dL AST (15-37) U/L ALT (16-63) U/L Alkaline Phosphatase (46-116) U/L Troponin I (<=0.056) ng/mL C-Reactive Protein (<=0.9) mg/dL NT-Pro-B Natriuret Pep (<=450) pg/mL Total Protein (6.4-8.2) g/dL Albumin (3.4-5.0) g/dL Globulin Albumin/Globulin Ratio Urine Color Dark yellow H (YELLOW) Urine Appearance Slightly cloudy H (CLEAR) Urine pH 5.0 (5.0-8.0) Ur Specific [place] 1.010 Urine Protein Negative (NEGATIVE) mg/dL Urine Glucose (UA) Negative (NEGATIVE) mg/dL Urine Ketones Negative (NEGATIVE) mg/dL Urine Occult Blood Negative (NEGATIVE) Urine Nitrite Negative (NEGATIVE) Urine Bilirubin Negative (NEGATIVE) Urine Urobilinogen 0.2 (0.2) EU/dL Ur Leukocyte Esterase Negative (NEGATIVE) Urine RBC 0-5 (NOT SEEN) /HPF Urine WBC 0-5 (NOT SEEN) /HPF Ur Transition Epith Cell Rare H (NEGATIVE) /HPF Amorphous Sediment Few Urine Bacteria Few H (NEGATIVE) /HPF Urine Mucus Few H (NEGATIVE) /LPF Meds: Medications Discontinued Medications Generic Name Dose Route Start Last Admin Trade Name Freq PRN Reason Stop Dose Admin Albuterol 2.5 mg 03/27/18 21:44 03/28/18 03:10 Proventil Neb Soln NEB 2.5 mg Q4HRRT PRN Administration Dyspnea Albuterol/Ipratropium 3 ml 03/27/18 20:25 03/27/18 20:53 Duoneb 3.0-0.5 Mg/3 Ml NEB 03/27/18 20:26 3 ml ONETIME ONE Administration Aspirin 81 mg 03/28/18 08:00 03/29/18 08:48 Aspirin PO 81 mg DAILY [facility] Administration Calcium Carbonate 1 tab 03/28/18 08:00 03/29/18 08:48 Calcium Carbonate/Vitamin D 1250 Mg-200 Unit PO 1 tab DAILY [facility] Administration Ceftriaxone Sodium 2 gm 03/27/18 21:45 03/28/18 08:23 Rocephin IVPUSH 2 gm DAILY [place] Administration Ceftriaxone Sodium 1 gm 03/29/18 08:00 03/29/18 08:48 Rocephin IV Not Given DAILY [facility] Cyanocobalamin 1,000 mcg 03/28/18 08:00 03/29/18 08:48 Vitamin B12 PO 1,000 mcg DAILY [place] Administration Enoxaparin Sodium 40 mg 03/28/18 14:30 03/28/18 15:17 Lovenox SUBCUT 40 mg Q24H [place] Administration Gabapentin 600 mg 03/28/18 08:00 03/29/18 08:49 Neurontin PO 600 mg DAILY [place] Administration Gabapentin 1,200 mg 03/28/18 12:00 03/28/18 20:15 Neurontin PO 1,200 mg BID@1200,2000 [place] Administration Sodium Chloride 500 mls @ 500 mls/hr 03/27/18 19:14 03/27/18 19:22 Normal Saline IV 03/27/18 20:13 500 mls/hr ONETIME ONE Administration Sodium Chloride 1,000 mls @ 125 mls/hr 03/27/18 21:42 03/27/18 21:58 Normal Saline IV 03/28/18 05:41 125 mls/hr .BOLUS ONE Administration Potassium Chloride/Sodium Chloride 1,000 mls @ 125 mls/hr 03/28/18 14:30 10/06 00:29 Normal Saline With 20 Meq Kcl IV 125 mls/hr ASDIRECTED [place]TE Administration Lisinopril 20 mg 03/28/18 08:00 03/29/18 08:48 Prinivil PO 20 mg DAILY [place] Administration Methylprednisolone Sodium Succinate 125 mg 03/27/18 21:45 03/28/18 15:20 Solu-Medrol IV Not Given Q8H [facility] Multivitamins/Minerals 1 tab 03/28/18 08:00 03/29/18 08:48 Thera M Plus PO 1 tab DAILY [place] Administration Oxycodone HCl 5 mg 03/27/18 20:24 03/27/18 20:51 Oxycodone PO 03/27/18 20:25 5 mg ONETIME ONE Administration Oxycodone HCl 5 mg 03/28/18 00:15 03/28/18 04:50 Oxycodone PO Not Given Q4H [place] Oxycodone HCl 5 mg 03/28/18 06:30 03/29/18 00:35 Oxycodone PO 5 mg Q4H PRN Administration Pain Senna/Docusate Sodium 2 tab 03/28/18 08:00 03/29/18 08:49 Senna Plus PO 1 tab BID [place] Administration Simvastatin 40 mg 03/28/18 20:00 03/28/18 20:15 Zocor PO 40 mg BEDTIME [facility] Administration Sodium Chloride 10 ml 03/27/18 17:41 03/28/18 15:34 Saline Flush FLUSH 10 ml ASDIRECTED PRN Administration Keep Vein Open Departure - Departure Time of Disposition: 22:20 Disposition: Admitted As Inpatient 67 Clinical Impression: Fever of unknown origin - Discharge Information
== END 2018-03-29 10:00 | disposition home or self-care (01) | DRG 864 ==
LOC: VM.ED 17:34 → VM.MS 21:45
PROVIDERS: ADMIT Family Medicine; ATTEND Family Medicine
DX: R50.9 Fever, unspecified (principal); R50.82 Postprocedural fever; F05 Delirium due to known physiological condition; N17.9 Acute kidney failure, unspecified; B02.29 Other postherpetic nervous system involvement; J40 Bronchitis, not specified as acute or chronic; E78.00 Pure hypercholesterolemia, unspecified; I10 Essential (primary) hypertension; M21.379 Foot drop, unspecified foot; M16.12 Unilateral primary osteoarthritis, left hip; M17.12 Unilateral primary osteoarthritis, left knee; Z88.0 Allergy status to penicillin; Z88.2 Allergy status to sulfonamides; Z79.899 Other long term (current) drug therapy; Z79.82 Long term (current) use of aspirin; Z87.01 Personal history of pneumonia (recurrent); Z96.649 Presence of unspecified artificial hip joint
CPT/HCPCS: 36415; 70450; 71045; 80048; 80053; 81001; 83605; 83735; 83880; 84484; 85025; 85610; 86140; 87804; 87804-59; 93005; 94640; 96361; 96374; 96375; 97161-GP; 99285; A9270-GY; J0696; J1650; J2930; J3480; J7030; J7040; J7050; J7620-GY

== ENCOUNTER 2023-03-08 10:30 | Inpatient (IN) | payer MEDICARE, BC ==
[2023-03-08] MEDS ORDERED: Sodium Chloride 0.9% 1,000 ML IV ONE (10:36)
[2023-03-08] MEDS ORDERED: cefTRIAXone 2 GM Vial IV ONE (10:36)
[2023-03-08] MEDS ORDERED: Acetaminophen 325 MG Tab PO ONE (11:12)
[2023-03-08 11:33] LABS: ANION GAP 9.4 mmol/L (5-15); CHLORIDE,CL 104 mmol/L (98-107); ESTIMATED GFR 45 mL/min (>=60); SODIUM,NA 137 mmol/L (136-145)
[2023-03-08 12:20] LABS: CORONAVIRUS COVID-19 NAA POSITIVE (NEGATIVE)
[2023-03-08 12:21] LABS: RESPIRATORY SYNCYTIAL VIR NAA NEGATIVE (NEGATIVE)
[2023-03-08] MEDS ORDERED: traMADol 50 MG Tab PO PRN (13:41)
[2023-03-08] MEDS: Gabapentin 300 MG Cap PO SCH ×2 (15:35→21:44)
[2023-03-08] MEDS: Nirmatrelvir/Ritonavir 150 MG/100 MG Dose Pack PO SCH ×2 (15:35→21:43)
[2023-03-08] MEDS: Sodium Chloride 0.9% 10 ML Syringe FLUSH PRN (21:38)
[2023-03-08] MEDS: Timolol Maleate 0.5% Ophth Soln 5 ML Bottle EYERT SCH (21:40)
[2023-03-08] MEDS: Latanoprost 0.005% Ophth Soln 2.5 ML Bottle EYEBOTH SCH (21:42)
[2023-03-08] MEDS: Enoxaparin 40 MG/0.4 ML Syringe SUBCUT SCH (21:44)
[2023-03-08] MEDS: Acetaminophen 325 MG Tab PO PRN (21:48)
[2023-03-09] MEDS: Levothyroxine 50 MCG Tab PO SCH (06:15)
[2023-03-09 07:20] LABS: ANION GAP 11.7 mmol/L (5-15)
[2023-03-09] MEDS ORDERED: Aspirin 81 MG Tab.EC PO SCH (09:00)
[2023-03-09] MEDS: Gabapentin 300 MG Cap PO SCH ×3 (09:32→20:18)
[2023-03-09] MEDS: Aspirin 81 MG Tab.Chew PO SCH (09:32)
[2023-03-09] MEDS: Nirmatrelvir/Ritonavir 150 MG/100 MG Dose Pack PO SCH ×2 (09:32→20:19)
[2023-03-09] MEDS: Timolol Maleate 0.5% Ophth Soln 5 ML Bottle EYERT SCH ×2 (09:33→20:19)
[2023-03-09] MEDS: Acetaminophen 325 MG Tab PO PRN (18:42)
[2023-03-09] MEDS: Sodium Chloride 0.9% 10 ML Syringe FLUSH PRN (20:18)
[2023-03-09] MEDS: Enoxaparin 40 MG/0.4 ML Syringe SUBCUT SCH (20:18)
[2023-03-09] MEDS: Latanoprost 0.005% Ophth Soln 2.5 ML Bottle EYEBOTH SCH (20:19)
[2023-03-10] MEDS: Levothyroxine 50 MCG Tab PO SCH (06:03)
[2023-03-10 08:28] LABS: ANION GAP 14.7 mmol/L (5-15)
[2023-03-10] MEDS: Gabapentin 300 MG Cap PO SCH ×3 (09:36→20:25)
[2023-03-10] MEDS: Nirmatrelvir/Ritonavir 150 MG/100 MG Dose Pack PO SCH ×2 (09:36→20:24)
[2023-03-10] MEDS: Aspirin 81 MG Tab.Chew PO SCH (09:36)
[2023-03-10] MEDS: Timolol Maleate 0.5% Ophth Soln 5 ML Bottle EYERT SCH ×2 (09:36→20:23)
[2023-03-10] MEDS: Lisinopril 20 MG Tab PO SCH (12:22)
[2023-03-10] MEDS: Enoxaparin 40 MG/0.4 ML Syringe SUBCUT SCH (20:24)
[2023-03-10] MEDS: Latanoprost 0.005% Ophth Soln 2.5 ML Bottle EYEBOTH SCH (20:24)
[2023-03-10] MEDS: Sodium Chloride 0.9% 10 ML Syringe FLUSH PRN (20:25)
[2023-03-11] MEDS: Levothyroxine 50 MCG Tab PO SCH (06:06)
[2023-03-11 08:31] LABS: ANION GAP 10.8 mmol/L (5-15)
[2023-03-11] MEDS: Lisinopril 20 MG Tab PO SCH (09:53)
[2023-03-11] MEDS: Aspirin 81 MG Tab.Chew PO SCH (09:53)
[2023-03-11] MEDS: Gabapentin 300 MG Cap PO SCH (09:53)
[2023-03-11] MEDS: Timolol Maleate 0.5% Ophth Soln 5 ML Bottle EYERT SCH (09:54)
[2023-03-11] MEDS: Nirmatrelvir/Ritonavir 150 MG/100 MG Dose Pack PO SCH (09:55)
== END 2023-03-11 11:16 | disposition home or self-care (01) | DRG 871 ==
LOC: VM.ED 10:30 → VM.MS 13:05
PROVIDERS: ADMIT Internal Medicine; ATTEND Internal Medicine
DX: A41.89 Other specified sepsis (principal); U07.1 COVID-19; B02.29 Other postherpetic nervous system involvement; E78.5 Hyperlipidemia, unspecified; G89.29 Other chronic pain; I12.9 Hypertensive chronic kidney disease with stage 1 through stage 4 chronic kidney disease, or unspecified chronic kidney disease; E03.9 Hypothyroidism, unspecified; I10 Essential (primary) hypertension; N18.9 Chronic kidney disease, unspecified; E66.9 Obesity, unspecified; Z96.649 Presence of unspecified artificial hip joint; E78.00 Pure hypercholesterolemia, unspecified; Z79.82 Long term (current) use of aspirin; Z79.890 Hormone replacement therapy; Z88.0 Allergy status to penicillin; Z88.2 Allergy status to sulfonamides; Z98.890 Other specified postprocedural states; Z90.49 Acquired absence of other specified parts of digestive tract; Z68.32 Body mass index [BMI] 32.0-32.9, adult; Z90.89 Acquired absence of other organs; Z98.49 Cataract extraction status, unspecified eye; W18.30XA Fall on same level, unspecified, initial encounter; Z79.899 Other long term (current) drug therapy
CPT/HCPCS: 0241U; 36415; 71045; 80048; 80053; 81003; 82947; 83605; 84145; 85025; 86140; 87040; 96361; 96365; 96375; 97116-GP; 97162-GP; 97165-GO; 97535-GO; 99284; 99285-25; A9270-GY; J0696; J1650; J3370; J3490; J7030; J7060